=== PATIENT | female | born 1980 | race African-American/Black ===

== ENCOUNTER 2023-02-06 19:25 | Emergency (ER) | payer OTHER ==
[~2023-02-06] VITALS: Ht 165.1 cm; Wt 65.0 kg
[2023-02-06 19:26] VITALS: TEMP 98.5; O2SAT 98
[2023-02-06 20:54] LABS: HCG SCREEN NEGATIVE
[2023-02-06 20:55] LABS: CALCIUM 9.4 mg/dL (8.7-10.4); CARBON DIOXIDE 25 mEq/L (21-32); CHLORIDE 105 mEq/L (98-107); CREATININE 0.9 mg/dL (0.6-1.0); GLUCOSE 98 mg/dL (70-105); POTASSIUM 3.9 mEq/L (3.5-5.1); SODIUM 136 mEq/L (136-145); UREA NITROGEN BLOOD 8 mg/dL (9-23)
[2023-02-06 21:00] VITALS: BP 132/84; PULSE 114; RESP 15
[2023-02-06] MEDS ORDERED: KETOROLAC 60MG/2ML VIAL IM ONE (21:00)
[2023-02-06] MEDS ORDERED: ACETAMINOPHEN 325MG TABLET PO ONE (21:00)
[2023-02-06] MEDS ORDERED: DICL50TA9 MT (21:38)
== END 2023-02-06 22:01 | disposition home or self-care (01) ==
LOC: ER 19:25
DX: S80.212A Abrasion, left knee, initial encounter (principal); S80.211A Abrasion, right knee, initial encounter; R58 Hemorrhage, not elsewhere classified; M79.672 Pain in left foot; Y08.89XA Assault by other specified means, initial encounter; Y93.89 Activity, other specified; Y92.89 Other specified places as the place of occurrence of the external cause; Y99.8 Other external cause status
CPT/HCPCS: 99285; 70486; 80048; 84703; 36415; 73630; 96372; J1885